=== PATIENT | female | born 1960 | race Caucasian/White ===

== ENCOUNTER 2019-06-02 20:40 | Emergency (ER) | payer BC, OTHER ==
[2019-06-02 20:52] VITALS: BP 116/54; PULSE 60; TEMP 98.3; BMI 25.0
--- NOTE | 2019-06-02 22:42 | PDOC ---
History of Present Illness - General Chief Complaint: Injury Stated Complaint: POSSIBLE LT WRIST FX Time Seen by Provider: 06/02/19 20:55 History Source: Patient Exam Limitations: No Limitations Past History - Past Medical History Allergies/Adverse Reactions: Allergies Allergy/AdvReac Type Severity Reaction Status Date / Time Penicillins Allergy Verified 06/02/19 20:52 Home Medications: Ambulatory Orders Ergocalciferol (Vitamin D2) [Vitamin D] 50,000 units MONTHLY 11/11/15 Multivitamin [Poly-Vitamin] 1 each PO DAILY 11/11/15 Naproxen Sodium [Aleve] 440 mg PO BID 11/11/15 Oxycodone HCl/Acetaminophen [Percocet 5/325 -] 1 - 2 tab PO Q4H #30 tablet MDD 8tabs 12/03/15 Oxycodone HCl/Acetaminophen [Percocet 5-325 mg Tablet] 1 tab PO Q6H PRN #20 tablet MDD 4 06/02/19 Anemia: No Asthma: No Cancer: No Cardiac Disorders: No CVA: No COPD: No CHF: No Dementia: No Diabetes: No GI Disorders: No Disorders: No HTN: No Hypercholesterolemia: Yes Liver Disease: No Seizures: No Thyroid Disease: No - Suicide/Smoking/Psychosocial Hx Smoking History: Never smoked Hx Alcohol Use: Yes (occasionally) Drug/Substance Use Hx: No Hx Substance Use Treatment: No *Physical Exam - Vital Signs Last Vital Signs Temp Pulse Resp BP Pulse Ox 98.3 F 60 18 116/54 L 100 06/02/19 20:49 06/02/19 20:49 06/02/19 20:49 06/02/19 20:49 06/02/19 20:49 - Physical Exam General Appearance: No: Apparent Distress HEENT: positive: Other (no head/neck trauma) Neck: positive: Supple Respiratory/Chest: positive: Lungs Clear, Normal Breath Sounds. negative: Respiratory Distress Cardiovascular: positive: Regular Rhythm, Regular Rate, S1, S2. negative: Murmur Extremity: positive: Other (+swelling and pain with movement of L wrist, LUE neurovascularly intact; +swelling along medial aspect of L knee, able to flex fully, +pain with extension of L knee; able to bear weight but pain on walking) Integumentary: negative: Ecchymosis, Bruising Neurologic: positive: Alert, Normal Mood/Affect Procedures - Splinting Splint Location: Left: Wrist Pre-Proc Neuro Vasc Exam: normal Hand-Made Type: orthoglass Splint Type: Yes: Sugar Tong Post-Proc Neuro Vasc Exam: normal Ken Bandage: yes Sling: Yes Complications: No ED Treatment Course - RADIOLOGY Radiology Studies Ordered: Category Date Time Status FOREARM- LEFT [RAD] Stat Radiology 06/02/19 20:55 Taken KNEE 3 POS-LEFT [RAD] Stat Radiology 06/02/19 21:24 Taken WRIST W/HAND-LEFT* [RAD] Stat Radiology 06/02/19 20:55 Taken - Medications Given in the ED: ED Medications Discontinued Medications Generic Name Dose Route Start Last Admin Trade Name Freq PRN Reason Stop Dose Admin Oxycodone/Acetaminophen 1 combo 06/02/19 21:43 06/02/19 21:51 Percocet 5/325 - PO 06/02/19 21:44 1 combo ONCE ONE Administration Medical Decision Making - Medical Decision Making 59 y/o F with no sig pmh presents with L wrist and L knee pain s/p slipping on wet floor at [facility] today. Patient fell on outstretched L hand. Denies head/neck trauma, LOC. Denies headache/neck pain, numbness/tingling. L knee xray - no fracture Likely knee sprain, placed in ken wrap for comfort L wrist - +distal radius fracture, no significant displacement noted Sugar tong splint placed; provided sling Given percocet for pain Patient states she has cane at home and states he will be able to help her given injury to LUE and LLE 06/02/19 22:37 *DC/Admit/Observation/Transfer Diagnosis at time of Disposition: Left knee sprain Qualifiers: Encounter type: initial encounter Involved ligament of knee: unspecified ligament Qualified Code(s): S83.92XA - Sprain of unspecified site of left knee, initial encounter Distal radius fracture, left Qualifiers: Encounter type: initial encounter Fracture type: closed Fracture morphology: Colles' Qualified Code(s): S52.532A - Colles' fracture of left radius, initial encounter for closed fracture - Discharge Dispostion Disposition: HOME Decision to Admit order: No - Prescriptions Prescriptions: Oxycodone HCl/Acetaminophen [Percocet 5-325 mg Tablet] 1 tab PO Q6H PRN #20 tablet MDD 4 PRN Reason: Pain - Referrals Referrals: Crispin Chavez MD [Staff Physician] - Bao Mccall DO [Staff Physician] - - Patient Instructions Printed Discharge Instructions: Colles' Fracture, DI for Knee Sprain Additional Instructions: Thank you for choosing [facility]. It was a pleasure taking care of you. You may take Motrin 600 mg every 6 hours by mouth as needed for mild to moderate pain. Take Motrin with food. For severe pain, you may take Percocet. This medication can make you constipated for which you may take over the counter Senna tablets as needed. This medication can also make you drowsy so please be cautious with driving or performing heavy physical work. Ice the site of left knee swelling. Keep leg elevated Follow-up in orthopedic clinic for further evaluation Return to the Emergency Department if your symptoms worsen or persist, have weakness of extremities, change in color of extremities, severe pain or other concerning symptoms. - Post Discharge Activity Forms/Work/School Notes: Back to Work
== END 2019-06-02 21:10 | disposition home or self-care (01) ==
LOC: JERFT 20:40
PROC: 2W3DX1Z Immobilization of Left Lower Arm using Splint (ICD-10-PCS; principal; 2019-06-02)
DX: S52.532A Colles' fracture of left radius, initial encounter for closed fracture (principal); S83.8X2A Sprain of other specified parts of left knee, initial encounter; W01.0XXA Fall on same level from slipping, tripping and stumbling without subsequent striking against object, initial encounter; Y93.89 Activity, other specified; Y92.512 Supermarket, store or market as the place of occurrence of the external cause; Y99.8 Other external cause status
CPT/HCPCS: 73090-TC-LT-FY; 73110-TC-LT-FY; 73130-TC-LT-FY; 73562-TC-LT-FY; 99281-25

== ENCOUNTER 2019-06-08 08:35 | Day surgery (SDC) | payer BC, OTHER ==
[2019-06-07 10:24] VITALS: BMI 25.7
[2019-06-08] MEDS ORDERED: MIDAZOLAM HCL 2 MG/2 ML SINGLE DOSE VIAL ONE (11:22)
[2019-06-08] MEDS ORDERED: PROPOFOL 20 ML ONE (11:22)
[2019-06-08] MEDS ORDERED: SUCCINYLCHOLINE CHLORIDE 200 MG/10 ML SYRINGE ONE (11:22)
[2019-06-08] MEDS ORDERED: BUPIVACAINE HCL/PF 2.5 MG/ML - 30 ML VIAL IJ ONE (11:58)
[2019-06-08] MEDS ORDERED: ONDANSETRON 4 MG/2 ML VIAL ONE (13:04)
[2019-06-08] MEDS ORDERED: PROMETHAZINE HCL 25 MG/1 ML VIAL IVPUSH PRN (13:12)
[2019-06-08] MEDS ORDERED: ONDANSETRON 4 MG/2 ML VIAL IVPUSH PRN (13:12)
[2019-06-08] MEDS ORDERED: oxyCODONE HCL 5 MG TABLET PO PRN ×2 (13:12)
--- NOTE | 2019-06-08 15:48 | OP ---
DATE OF OPERATION: 06/08/2019 SURGEON: Armani Galindo MD PRINCIPAL ACCOUNT CLERK: ZAKIYA Beverly PREOPERATIVE DIAGNOSIS: Left distal radius fracture. POSTOPERATIVE DIAGNOSIS: Left distal radius fracture. PROCEDURE: Percutaneous pinning of left distal radius fracture. FINDINGS: Comminuted fracture, apex volar, with displacement, left distal radius. DESCRIPTION OF PROCEDURE: Informed consent was obtained. Patient taken to the operating room where the left upper extremity was prepped and draped in sterile fashion. Reduction maneuver was performed using C-arm fluoroscopy. Adequate reduction was noted. Two pins were then placed from the radial styloid across the joint, confirmed in AP and lateral planes, and found to have good reduction. Small 15-blade was used around the area, cutting 2 mm on each side of the pin to prevent impingement from the skin. Pins were bent and secured. Sterile dressing at this point was placed. Patient was transferred to recovery room after hematoma block was performed. The PA listed above was present and assisted at surgery. Their presence was absolutely medically necessary for the completion of the procedure. They helped hold the arthroscopy, pass instruments (and implants when indicated) and the procedure could not have been completed without their assistance. ARMANI GALINDO M.D. [id number]
[2019-06-08 16:21] VITALS: BP 214/71; PULSE 74
[2019-06-08 16:25] VITALS: TEMP 98
--- NOTE | 2019-06-11 08:49 | OP ---
DATE OF OPERATION: 06/08/2019 SURGEON: Manuel Galindo MD CONVERTER SUPERVISOR: ZAKIYA Beverly PREOPERATIVE DIAGNOSES: 1. Left knee medial, lateral meniscus tear. 2. Left knee cartilage injury. 3. Left knee synovitis. POSTOPERATIVE DIAGNOSES: 1. Left knee medial, lateral meniscus tear. 2. Left knee cartilage injury. 3. Left knee synovitis. PROCEDURE: 1. Left knee arthroscopy, partial meniscectomy, medial lateral meniscus. CPT code 35068. 2. Left knee arthroscopy with chondroplasty and abrasoplasty. CPT code 11081. 3. Left knee arthroscopy with synovectomy. CPT code 31456. FINDINGS: 1. Medial meniscus body to posterior horn tear. 2. Lateral meniscus previous partial meniscectomy with anterior tear and posterior extrusion with posterior body tear. 3. Synovitis of the patellofemoral, mediolateral notch. 4. medial femoral condyle and tibial plateau with diffuse grade 3 changes 50% of medial femoral condyle. 5. ACL and PCL intact. 6. Diffuse grade 1-2 cartilage injury, . 7. grade 2-3 cartilage injury, central third of the patella. Grade 3-4 changes of the patellofemoral trochlea, and grade 4 changes of anteromedial patella 4 cm x 2 cm. PROCEDURE: Informed consent was obtained. The patient came to the operating room, where the lower extremity was prepped and draped in a sterile fashion. A tourniquet was placed on the upper thigh, but not inflated. Using standard arthroscopic technique, a lateral incision and portal was made to allow for introduction of the camera into the suprapatellar bursa. This was then taken to the medial joint line, where under direct visualization, a medial incision and portal was made. Excessive synovium noted in the medial, lateral and patellofemoral and notch area was removed by an upbiter, shaver and Bovie cautery. This was found to bring in inflammatory tissue into the joint surface, a source of pain and dysfunction. Probing of the medial and lateral meniscus found tears, as described in the findings. These were removed with the upbiter and shaver and taken back to a stable rim. Grade 2 to 3 degenerative changes were treated with a chondroplasty, removing all flaking surfaces with low-setting Bovie along the periphery to prevent further flaking. Grade 4 changes, as noted, were treated with an abrasoplasty, creating a bleeding surface at the bone/cartilage interface. Aggressive debridement with shaver/sil created bleeding surface. Micro fracture also done when indicated in findings. All areas of the knee were once again reexamined. The knee was then drained and a single suture was placed in all portals. A sterile dressing was placed and the patient was transferred to the recovery room without complication. The PA listed above was present and assisted at surgery. Their presence was absolutely medically necessary for the completion of the procedure. They helped hold the arthroscopy, pass instruments (and implants when indicated) and the procedure could not have been completed without their assistance. MANUEL GALINDO M.D. [id number]
== END 2019-06-08 14:45 | disposition home or self-care (01) ==
LOC: FASU 08:35
PROVIDERS: ATTEND Orthopaedic Surgery
PROC: 0SBD4ZZ Excision of Left Knee Joint, Percutaneous Endoscopic Approach (ICD-10-PCS; 2019-06-08)
PROC: 0SBD4ZZ Excision of Left Knee Joint, Percutaneous Endoscopic Approach (ICD-10-PCS; 2019-06-08)
PROC: 0PSJ34Z Reposition Left Radius with Internal Fixation Device, Percutaneous Approach (ICD-10-PCS; principal; 2019-06-08 12:16)
PROC: 0SBD4ZZ Excision of Left Knee Joint, Percutaneous Endoscopic Approach (ICD-10-PCS; 2019-06-08 12:16)
DX: S52.502A Unspecified fracture of the lower end of left radius, initial encounter for closed fracture (principal); S83.242A Other tear of medial meniscus, current injury, left knee, initial encounter; S83.282A Other tear of lateral meniscus, current injury, left knee, initial encounter; S83.8X2A Sprain of other specified parts of left knee, initial encounter; M65.862 Other synovitis and tenosynovitis, left lower leg; X58.XXXA Exposure to other specified factors, initial encounter; Y93.9 Activity, unspecified; Y92.9 Unspecified place or not applicable
CPT/HCPCS: 73110-TC-LT-FY; 94760